=== PATIENT | female | born 1990 | race Two or more races ===

== ENCOUNTER 2021-04-17 17:20 | Inpatient (IN) | payer OTHER ==
[~2021-04-17] VITALS: Ht 175.3 cm; Wt 97.5 kg
[2021-04-17] MEDS ORDERED: PHISODERM TOP SOLN 240ML BTL TOP PRN (18:15)
[2021-04-17] MEDS ORDERED: LIDOCAINE 2%HCL (LOCAL ANESTH.) INJ 20ML MDV IJ PRN (18:15)
[2021-04-17] MEDS ORDERED: BUTORPHANOL TARTRATE 2 MG/1 ML VIAL IV PRN ×2 (18:15)
[2021-04-17] MEDS ORDERED: LACTATED RINGER'S 1,000 ML IV SCH (18:15)
[2021-04-17] MEDS ORDERED: PROMETHAZINE HCL 25 MG/ML 1ML IV PRN (18:15)
[2021-04-17] MEDS ORDERED: WITCH HAZEL-GLYCERIN PAD TOP PRN (18:15)
[2021-04-17] MEDS ORDERED: LACT. RINGERS/OXYTOCIN 20UNITS 500 ML IV PRN ×2 (18:15)
[2021-04-17] MEDS ORDERED: DERMOPLAST 60ML BOTTLE TOP PRN (18:15)
[2021-04-17] MEDS ORDERED: METHYLERGONOVINE MALEATE 0.2 MG/ML AMP IM ONE (18:23)
[2021-04-17 19:21] LABS: Basophils # (auto) 0.1 10 ^3/uL (0-0.2); Basophils % (auto) 0.4 % (0.0-2.0); Eosinophils # (auto) 0.1 10 ^3/uL (0-0.8); Eosinophils % (auto) 0.6 % (0.0-7.0); Hematocrit 34.3 % (36.0-46.0); Hemoglobin 11.7 g/dL (12.2-16.2); Lymphocytes # (auto) 1.3 10 ^3/uL (0.4-5.4); Lymphocytes % (auto) 8.4 % (10.0-50.0); Mean Corpuscular Hemoglobin 30.9 pg (28.0-32.0); Mean Corpuscular Volume 90.9 fL (80.0-100.0); Monocytes # (auto) 0.7 10 ^3/uL (0-1.3); Monocytes % (auto) 4.2 % (0.0-12.0); Neutrophils # (auto) 13.4 10 ^3/uL (1.6-8.6); Neutrophils % (auto) 86.4 % (37.0-80.0); Red Blood Cells 3.78 10^6/uL (4.0-5.20); Red Cell Distribution Width 13.3 % (11.8-14.3); White Blood Cell 15.6 10^3/uL (4.4-10.8)
[2021-04-17 19:36] LABS: Albumin 2.8 g/dL (3.4-5.0); BUN/Creatinine Ratio 12.2; Calcium 8.6 mg/dL (8.5-10.1); Potassium 3.5 mmol/L (3.5-5.1)
[2021-04-17 19:38] LABS: Total Protein 7.4 g/dL (6.4-8.2)
[2021-04-17 20:39] LABS: Urine Bacteria NONE SEEN /hpf (None Seen); Urine Blood 2+ /uL (Negative); Urine Mucus FEW (None Seen); Urine Specific Gravity 1.025 (1.001-1.035); Urine WBC 2 /hpf (0 - 5)
[2021-04-17 20:47] LABS: INR 0.94 (0.9-1.15); Partial Thromboplastin Time 26.2 sec (23.0-31.2)
[2021-04-17 21:08] LABS: Alcohol, Urine < 3.0 mg/dL (0-10); Amphetamine Screen, Urine NEGATIVE (NEGATIVE); Barbiturate Scree,Urine NEGATIVE (NEGATIVE); Benzodiazephine Screen, Urine NEGATIVE (NEGATIVE); Cannabinoid Screen, Urine NEGATIVE (NEGATIVE); Cocaine Screen, Urine NEGATIVE (NEGATIVE); Opiate Scree,Urine NEGATIVE (NEGATIVE); Phencyclidine Screen, Urine NEGATIVE (NEGATIVE)
[2021-04-17 23:10] VITALS: BP 116/65
[2021-04-18] MEDS ORDERED: ONDANSETRON HCL 4 MG/2 ML VIAL IV PRN
[2021-04-18] MEDS ORDERED: ACETAMINOPHEN 325 MG TAB PO PRN
[2021-04-18 03:10] VITALS: BP 106/54
[2021-04-18] MEDS ORDERED: PREN-96 OR (04:32)
[2021-04-18] MEDS: IBUPROFEN 600 MG TAB PO PRN (04:42)
[2021-04-18 06:41] VITALS: BP 100/60
[2021-04-18 10:35] VITALS: BP 114/59
[2021-04-18 15:30] VITALS: BP 114/56
[2021-04-18 19:00] VITALS: BP 108/56
[2021-04-18 23:00] VITALS: BP 115/56
[2021-04-19 03:19] VITALS: BP 95/51
[2021-04-19] MEDS: IBUPROFEN 600 MG TAB PO PRN (05:21)
[2021-04-19 07:00] VITALS: BP 101/52
[2021-04-19 07:07] LABS: RPR Non Reactive (Non Reactive)
[2021-04-19 11:00] VITALS: BP 100/56
== END 2021-04-19 13:38 | disposition home or self-care (01) | DRG 807 ==
LOC: OBSVTOIN 17:20 → UNDOADMOB 17:20 → LDRP 17:20 → INTOOBSV 17:20 → LDRP 04-18 19:19 → OBSVTOIN 04-18 19:19
PROVIDERS: ADMIT Obstetrics & Gynecology; ATTEND Obstetrics & Gynecology
PROC: 10E0XZZ Delivery of Products of Conception, External Approach (ICD-10-PCS; principal; 2021-04-18)
DX: O80 Encounter for full-term uncomplicated delivery (principal); Z37.0 Single live birth; Z3A.40 40 weeks gestation of pregnancy; Z20.822 Contact with and (suspected) exposure to COVID-19
CPT/HCPCS: 36415; 59025; 59409; 80053; 80307; 81001; 81002; 85025; 85610; 85730; 86592; 86703; 86762; 86850; 86900; 86901; 87340; 87426; 94760; 96360; 96361; 96365; 96366; 96374; 96375; G0378; J2590